=== PATIENT | male | born 1990 | race Caucasian/White ===

== ENCOUNTER 2019-05-15 22:11 | Emergency (ER) | payer OTHER ==
[~2019-05-15] VITALS: Ht 167.6 cm; Wt 72.6 kg
[2019-05-15] MEDS ORDERED: IBUPROFEN800 MG (22:44)
[2019-05-16] MEDS ORDERED: SKELAXIN800 MG PO (01:07)
[2019-05-16] MEDS ORDERED: KETO10TA2 PO (01:07)
== END 2019-05-16 00:53 ==
LOC: ER 22:11
DX: S13.4XXA Sprain of ligaments of cervical spine, initial encounter (principal); S40.012A Contusion of left shoulder, initial encounter; S20.222A Contusion of left back wall of thorax, initial encounter; S20.221A Contusion of right back wall of thorax, initial encounter; V43.52XA Car driver injured in collision with other type car in traffic accident, initial encounter; Y93.89 Activity, other specified; Y92.413 State road as the place of occurrence of the external cause; Y99.8 Other external cause status